=== PATIENT | female | born 1945 ===

== ENCOUNTER 2025-01-02 11:31 | Emergency (ER) | payer SELFPAY ==
--- NOTE | ~2025-01-02 | CT_ITS ---
EXAMINATION: CT HEAD WITHOUT CONTRAST CLINICAL INFORMATION: headstrike COMPARISON: None available. TECHNIQUE: Contiguous axial imaging was performed from the skull base to vertex without intravenous administration of contrast. This CT examination was performed using dose optimization techniques as appropriate, variously including the following: *Automated exposure control *Adjustment of mA and/or kV according to patient size (this includes techniques or standardized protocols for targeted exams where dose is matched to indication/reason for exam; i.e. extremities or head) *Use of iterative reconstruction technique DLP: 907 mGy-cm FINDINGS: Bony calvarium is intact. Skull base is intact. No acute intracranial hemorrhage, mass effect, midline shift, hydrocephalus or herniation. Balderas-white matter differentiation is normal. Prominence of the extra-axial CSF spaces cerebral sulci and ventricles. Bilateral multifocal patchy deep periventricular white matter hypodensities involving centrum semiovale and rascon radiata. Calcified plaques in the cavernous supraclinoid segments both ICAs. Mucosal thickening and air-fluid levels, right maxillary sinus. Retention cysts versus polyp, left maxillary sinus. Mucosal thickening, ethmoid cells. Mucosal thickening and effervescent secretions, sphenoid sinus. Tympanic cavities and mastoid air cells are aerated. Edentulous.. CT/CT head/brain wo IV con IMPRESSION: No acute fracture, bony calvarium. No acute intracranial hemorrhage. Small vessel occlusive disease. Global cerebral atrophy. Intracranial atherosclerosis disease.. Electronically signed by: Mendez Patel MD 01/02/2025 01:03 PM EDT
--- NOTE | ~2025-01-02 | CT_ITS ---
EXAMINATION: CT CERVICAL SPINE WITHOUT CONTRAST CLINICAL INFORMATION: Injury. COMPARISON: None available. TECHNIQUE: Contiguous axial images through the cervical spine using 3 mm collimation with bone and soft tissue algorithm. Sagittal and coronal reformatted images acquired. This CT examination was performed using dose optimization techniques as appropriate, variously including the following: *Automated exposure control *Adjustment of mA and/or kV according to patient size (this includes techniques or standardized protocols for targeted exams where dose is matched to indication/reason for exam; i.e. extremities or head) *Use of iterative reconstruction technique DLP: 907 mGy centimeter. FINDINGS: Degenerative changes in the periodontal C1 region. There is being hardening artifact secondary to metallic jewelry. Craniocervical junction is intact. C1 is intact. C2 is intact. C3 is intact. C4 is intact. C5 is intact. C6 is intact. C7 is intact. Marginal osteophyte formation and endplate sclerosis subchondral cyst formation decreased intervertebral disc height and vacuum phenomenon at C3-4. Marginal osteophyte formation and endplate sclerosis and subchondral cyst formation with decreased intervertebral disc height at C5-C6. Grade 1 retrolisthesis C3-4 on a degenerative basis. Facet joint hypertrophy more conspicuous at C4-5 and C5-6 levels. No prevertebral compartment hematoma. Calcified plaques in the carotic arteries Effervescent secretions in the sphenoid sinus.. CT/CT cervical spine wo IV con IMPRESSION: Multilevel cervical spondylosis, C3-4 and C5-6 without acute fracture or trauma-related listhesis. Fleischner guidelines were followed. Electronically signed by: Mendez Patel MD 01/02/2025 01:00 PM EDT
[2025-01-02 11:37] VITALS: BP 110/60; BP 146/63; PULSE 62; PULSE 71; RESP 18; TEMP 36.7; O2SAT 95; O2SAT 96; BMI 21.1
[2025-01-02 11:38] VITALS: BP 146/63; PULSE 67; RESP 18; TEMP 36.8; O2SAT 96
--- NOTE | 2025-01-02 12:51 | ED_ITS ---
HPI - General Adult General Chief complaint: Fall Stated complaint: FALL, ABRASION R LEG, FACE LAC PER EMS Time Seen by Provider: 01/02/25 11:35 Source: patient and family History of Present Illness ED Provider: Gwendolyn HPI narrative: 79-year-old female with past medical history of Alzheimer's presenting for fall. Patient was walking in basketball with her family when she tripped on a rug and fell forward striking her face on the ground. There was no LOC and patient is at baseline mentation per family. She sustained minor abrasion to right face and right anterior knee. She denies head pain, neck pain, chest pain, abdominal pain. Related Data Allergies Allergy/AdvReac Type Severity Reaction Status Date / Time No Known Allergies Allergy Verified 01/02/25 11:41 Review of Systems Review of Systems: Yes all other systems are reviewed and are negative PMFSH Social History Social History Smoked in Last 30 Days: No Use of substances other than those prescribed or required for medical reasons: No Advance Directives: No Advance Directives Information Provided: Yes Do you have a plan to hurt others: No Plan Physical Exam ED Vital Signs: Vital Signs - 24 hr 01/02/25 11:37 01/02/25 11:38 01/02/25 14:34 Temperature 98.1 F 98.2 F 97.8 F Pulse Rate 62 67 61 Respiratory Rate 18 18 18 Blood Pressure 146/63 H 146/63 H 154/76 H Pulse Oximetry 96 96 96 Oxygen Delivery Method Room Air Room Air Room Air BMI result Body Mass Index 21.1 Well-appearing elderly female in no acute distress Minor abrasion to right side of face, no septal hematoma, no midline C-spine tenderness to palpation Unlabored breathing with clear lung tran Normal S1-S2 regular rate and rhythm Abdomen is soft nontender nondistended Abrasion to right anterior knee however full range of motion at joints, neurovascularly intact with palpable posterior tibialis pulse Medical Decision Making Medical Decision Making [facility] Narrative: 79-year-old female presenting for fall - patient has suffered a mechanical fall sustaining abrasion to right anterior knee. We will have no immediate concern for head bleed or cervical fracture head and neck imaging were ordered. I also ordered chest x-ray, pelvic x-ray a nd right knee x-ray to rule out fracture - patient is not on thinners and I do not believe that lab work is necessary as I have no concerns for acute blood loss or underlying infection My independent interpretation of imaging - no obvious head bleed or cervical fracture noted on CT scan; the radiologist person knows cervical spondylosis without fracture and no head bleed Patient and patient's daughter did not want to wait for x-ray imaging. Patient ambulating at bedside without difficulty she has no complaints of pain other than her right knee abrasion. I explained that while my suspicion for fracture is low I could not definitively ruled out explained the risks of not identifying potential fracture. Daughter states she understands risk and will bring her back to an ED if she complains of an additional pain. I instructed them to follow up with her PCP in 2-4days Discharge Plan Discharge Clinical Impression: Fall Qualifiers: Encounter type: initial encounter Qualified Code(s): W19.XXXA - Unspecified fall, initial encounter Abrasion of knee Qualifiers: Encounter type: initial encounter Laterality: right Qualified Code(s): S80.211A - Abrasion, right knee, initial encounter Patient Disposition: Home, Self-Care Additional Instructions: Please follow up with your primary care provider in the next 24-48 hours for reassessment When ambulating he should use a walker as much as possible If you develop any new or worsening symptoms please return to the emergency department Print Language: Kiswahili
[2025-01-02 14:34] VITALS: BP 154/76; PULSE 61; RESP 18; TEMP 36.6; O2SAT 96
--- NOTE | 2025-01-02 14:35 | MHC.EDTECH ---
Wound care given to patient's right knee,cleaned with normal saline,placed a telfa dressing and wrapped with a cling, pt tolerated well, vitals taken
[2025-01-02 14:40] VITALS: BP 154/76; PULSE 61; RESP 18; TEMP 36.6; O2SAT 96
== END 2025-01-02 14:41 | disposition home or self-care (01) ==
PROVIDERS: Emergency Provider Student in an Organized Health Care Education/Training Program
DX: S80.211A Abrasion, right knee, initial encounter (principal); S00.81XA Abrasion of other part of head, initial encounter; W01.0XXA Fall on same level from slipping, tripping and stumbling without subsequent striking against object, initial encounter; Y93.89 Activity, other specified; Y92.018 Other place in single-family (private) house as the place of occurrence of the external cause; Y99.9 Unspecified external cause status
CPT/HCPCS: 70450; 72125; 99284

== ENCOUNTER → 2025-01-02 12:17 | Outpatient (BNV) | payer SELFPAY | PROVIDERS: Emergency Provider Student in an Organized Health Care Education/Training Program; Visit Provider Radiology Diagnostic Radiology | DX: M47.892 Other spondylosis, cervical region (principal); I67.2 Cerebral atherosclerosis; G31.9 Degenerative disease of nervous system, unspecified; S09.90XA Unspecified injury of head, initial encounter | CPT/HCPCS: 70450; 72125 ==